=== PATIENT | female | born 1985 | race Caucasian/White ===

== ENCOUNTER 2020-07-16 17:20 | Emergency (ER) | payer OTHER ==
[~2020-07-16 17:20] MED LIST: BACTRIM DS TAB1 EACH PO; BACTROBAN OINT22 GM EXT
[2020-07-16] MEDS ORDERED: IBU800 MG PO (20:25)
[2020-07-16] MEDS ORDERED: ZOFRAN ODT 4 MG4 MG PO (20:25)
[2020-07-16] MEDS ORDERED: BACTRIM DS TAB1 EACH PO (20:25)
== END 2020-07-16 21:00 | disposition home or self-care (01) ==
LOC: ER1 17:20
DX: L03.211 Cellulitis of face (principal); R30.0 Dysuria; F17.290 Nicotine dependence, other tobacco product, uncomplicated
CPT/HCPCS: 81001; 99283

== ENCOUNTER 2020-09-17 14:39 | Emergency (ER) | payer OTHER ==
[~2020-09-17 14:39] MED LIST changes: +IBU800 MG PO; +ZOFRAN ODT 4 MG4 MG PO
[2020-09-17] MEDS ORDERED: LODINE CAP 300300 MG PO (15:39)
== END 2020-09-17 15:51 | disposition home or self-care (01) ==
LOC: ER1 14:39
DX: S90.32XA Contusion of left foot, initial encounter (principal); Z86.73 Personal history of transient ischemic attack (TIA), and cerebral infarction without residual deficits; W20.8XXA Other cause of strike by thrown, projected or falling object, initial encounter; Y92.89 Other specified places as the place of occurrence of the external cause; Y99.0 Civilian activity done for income or pay
CPT/HCPCS: 73630; 99283